=== PATIENT | male | born 1990 | race Caucasian/White ===

== ENCOUNTER 2023-08-31 07:33 | Outpatient (CLI) | payer OTHER | END 2023-08-31 23:59 | disposition short-term general hospital (02) | LOC: EMS 07:33 | DX: M79.631 Pain in right forearm (principal); M21.931 Unspecified acquired deformity of right forearm; R20.0 Anesthesia of skin; S59.911A Unspecified injury of right forearm, initial encounter; V53.5XXA Driver of pick-up truck or van injured in collision with car, pick-up truck or van in traffic accident, initial encounter; Y92.413 State road as the place of occurrence of the external cause | CPT/HCPCS: A0425; A0429 ==